=== PATIENT | male | born 1980 | race Two or more races ===

== ENCOUNTER → 2021-10-06 | Emergency (ER) | payer BC, MEDICAID ==
[~2021-10-06] VITALS: Ht 185.4 cm; Wt 90.7 kg
[~2021-10-06] MED LIST: CEPH-322 PO
[2021-10-06 19:05] VITALS: BP 125/87
== END | disposition home or self-care (01) ==
LOC: ER 18:56
DX: S62.621A Displaced fracture of middle phalanx of left index finger, initial encounter for closed fracture (principal); S62.633A Displaced fracture of distal phalanx of left middle finger, initial encounter for closed fracture; S60.512A Abrasion of left hand, initial encounter; Z90.49 Acquired absence of other specified parts of digestive tract; Z79.899 Other long term (current) drug therapy; W23.0XXA Caught, crushed, jammed, or pinched between moving objects, initial encounter; Y93.89 Activity, other specified; Y92.89 Other specified places as the place of occurrence of the external cause; Y99.8 Other external cause status
CPT/HCPCS: 29125; 73130

== ENCOUNTER 2023-04-19 13:57 | Emergency (ER) | payer BC, MEDICAID ==
[~2023-04-19] VITALS: Ht 182.9 cm; Wt 100.5 kg
[~2023-04-19 13:57] MED LIST changes: -CEPH-322 PO; +CEPH250C PO
[2023-04-19 18:05] VITALS: BP 142/78; PULSE 78; RESP 17; TEMP 97.7; O2SAT 97
== END 2023-04-19 18:16 | disposition home or self-care (01) ==
LOC: ER 13:57
DX: S61.212A Laceration without foreign body of right middle finger without damage to nail, initial encounter (principal); S61.214A Laceration without foreign body of right ring finger without damage to nail, initial encounter; Z98.890 Other specified postprocedural states; Z79.899 Other long term (current) drug therapy; W22.8XXA Striking against or struck by other objects, initial encounter; Y93.89 Activity, other specified; Y92.89 Other specified places as the place of occurrence of the external cause; Y99.8 Other external cause status
CPT/HCPCS: 12001; 73130

== ENCOUNTER → 2023-08-13 | Outpatient (CLI) | payer BC ==
[2023-08-13 13:36] LABS: Basophils # (auto) 0.1 10 ^3/uL (0-0.2); Basophils % (auto) 1.4 % (0.0-2.0); Eosinophils # (auto) 0.1 10 ^3/uL (0-0.8); Eosinophils % (auto) 1.1 % (0.0-7.0); Hematocrit 45.6 % (41.0-53.0); Hemoglobin 15.4 g/dL (13.5-17.5); Mean Corpuscular Hemoglobin 33.9 pg (28.0-32.0); Mean Corpuscular Hgb Conc. 33.9 g/dL (32.0-36.0); Monocytes # (auto) 0.6 10 ^3/uL (0-1.3); Monocytes % (auto) 10.4 % (0.0-12.0); Neutrophils # (auto) 3.2 10 ^3/uL (1.6-8.6); Neutrophils % (auto) 54.1 % (37.0-80.0); Nucleated Red Blood Cells % 0.1 %; Red Blood Cells 4.56 10^6/uL (4.5-5.90); Red Cell Distribution Width 13.3 % (11.8-14.3)
[2023-08-13 14:13] LABS: Alanine Aminotransferase 186 U/L (7-40); Albumin 4.7 g/dL (3.2-4.8); Alkaline Phosphatase 106 U/L (46-116); Anion Gap 9 (5-15); Aspartate Aminotransferase 151 U/L (13-40); BUN/Creatinine Ratio 15.2 (10.0-20.0); Blood Urea Nitrogen 16 mg/dL (9-23); Calcium 10.2 mg/dL (8.5-10.1); Carbon Dioxide 25 mmol/L (20-30); Chloride 105 mmol/L (98-107); Cholesterol 194 mg/dL (< 200); Glucose 89 mg/dL (74-106); LDL Cholesterol 110 mg/dL (< 100); Sodium 139 mmol/L (136-145); Triglycerides 75 mg/dL (< 150)
[2023-08-13 14:14] LABS: Bilirubin, Total 2.3 mg/dL (0.2-1.0); HDL Cholesterol 74 mg/dL (40-59); Total Protein 7.7 g/dL (5.7-8.2)
[2023-08-14 06:06] LABS: Anti-Nuclear Antibody Direct Negative (Negative)
[2023-08-14 07:06] LABS: RPR Non Reactive (Non Reactive)
[2023-08-15 05:06] LABS: Chlamydia Trachomatis, NAA Positive (Negative); Neisseria gonorrhoeae, NAA Negative (Negative)
[2023-08-16 10:11] LABS: Hepatitis B Core Total AB Negative (Negative)
[2023-08-16 11:07] LABS: Hepatitis A Total Antibody Positive (Negative); Hepatitis B Surface Antibody Negative (Negative); Hepatitis B Surface Antigen Negative (Negative)
[2023-08-16 11:09] LABS: Hepatitis C Antibody Reactive (Negative)
== END | disposition home or self-care (01) ==
LOC: LAB 13:22
PROVIDERS: ATTEND Student in an Organized Health Care Education/Training Program
DX: B19.20 Unspecified viral hepatitis C without hepatic coma (principal)
CPT/HCPCS: 36415; 80053; 80061; 85025; 86038; 86592; 86703; 86704; 86706; 86708; 86803; 87340